=== PATIENT | male | born 1975 | race Caucasian/White ===

== ENCOUNTER 2021-01-25 00:11 | Inpatient (IN) | payer BC, SELFPAY ==
[2021-01-25] VITALS (16 sets, daily range): BP systolic 112–149; BP diastolic 57–94; PULSE 77–109; RESP 16–20; TEMP 36.3–37.3; O2SAT 93–100; BMI 44.4; BMI 97.8
--- NOTE | ~2021-01-25 | US_ITS ---
EXAMINATION: US venous doppler [facility] DATE: 01/26/2021 09:21 INDICATION: Bilateral lower limb swelling TECHNIQUE: Castle scale images without and with compression and Doppler images of the bilateral lower e xtremity veins were obtained. COMPARISON: None FINDINGS: The right common femoral vein, profunda femoral vein, femoral vein, popliteal vein, peroneal trunk, p osterior tibial veins, and greater saphenous vein are patent. The left common femoral vein, profunda femoral vein, femoral vein, popliteal vein, peroneal trunk, po sterior tibial veins, and greater saphenous vein are patent. IMPRESSION: 1. Patent bilateral lower extremity veins. No evidence of deep venous thrombosis. Reviewed, dictated and finalized at location A. IMPRESSION: 1. Patent bilateral lower extremity veins. No evidence of deep venous thrombosi s.
--- NOTE | ~2021-01-25 | CT_ITS ---
EXAMINATION: CTA chest PE protocol DATE: 01/25/2021 02:12 INDICATION: Shortness of breath TECHNIQUE: Computed tomography angiography (CTA) of the chest was performed with 100 mL Omnipaque-350 intravenous contrast timed to evaluate the pulmonary arteries. Coronal maximum intensity projection 3D-reconstructions were created by the technologist. The dose-length product (DLP) was 898.49 mGy-cm. Automated exposure control and iterative reconstruction technique were employed. COMPARISON: None. FINDINGS: The pulmonary arteries are well-opacified. No pulmonary embolism is identified. There are w idespread airspace opacities involving all lung zones. There is no pleural effusion or pneumothorax. The heart size is normal. There is mild mediastinal and bilateral hilar lymphadenopathy. There is mil d thoracic spondylosis. Cholelithiasis is noted. IMPRESSION: 1. Diffuse lung disease, consistent with atypical pneumonia, possibly COVID 19 patient's clinical his tory. 2. No pulmonary embolus. Reviewed, dictated and finalized at location A. IMPRESSION: 1. Diffuse lung disease, consistent with atypical pneumonia, possibly COVID 19 patient's clinical history. 2. No pulmonary embolus.
--- NOTE | ~2021-01-25 | XR_ITS ---
EXAMINATION: XR chest 1V portable DATE: 01/25/2021 00:42 INDICATION: Shortness of breath TECHNIQUE: frontal view of the chest was obtained. COMPARISON: None FINDINGS: Patchy airspace opacities scattered throughout both lungs consistent with pneumonia. No pleural effus ion or pneumothorax. The cardiomediastinal silhouette is normal. IMPRESSION: 1. Diffuse bilateral patchy lung disease consistent with pneumonia including COVID pneumonia. Pulmona ry edema considered less likely. Reviewed, dictated and finalized at location A. IMPRESSION: 1. Diffuse bilateral patchy lung disease consistent with pneumonia including CO VID pneumonia. Pulmonary edema considered less likely.
--- NOTE | 2021-01-25 00:33 | ECG_ITS ---
Measurements Intervals [place] Rate: 109 P: -23 MN: 124 QRS: -20 QRSD: 86 T: 58 QT: 343 QTc: 462 Interpretive Statements SINUS TACHYCARDIA LOW QRS VOLTAGE IN PRECORDIAL LEADS BASELINE ARTIFACT- I, II, III, AVR, AVF, V1-V6 ABNORMAL ECG Electronically Signed On 01-25-2021 7:10:06 CDT by Dewayne Mcdermott D.O.
--- NOTE | 2021-01-25 00:35 | ED.SOB ---
HPI - SOB/Dyspnea General Chief Complaint: Shortness of Breath/Dyspnea Stated Complaint: low O2 sats, fever Time Seen by Provider: 01/25/21 00:22 History of Present Illness HPI Narrative: 45 yo male w/ h/o htn, DM presents to the ED for SOB. He was diagnosed with COVID-19 on 12/29. He was hospitalized and placed on Remdesivir. After discharge he reports that he had not required oxygen. He has had increased SOB today. He also reports fever of 101 at home. He was found to have RA sat f 83% in triage. No CP Related Data Allergies Allergy/AdvReac Type Severity Reaction Status Date / Time latex Allergy Blister Verified 01/25/21 02:16 sulfamethoxazole Allergy Hives Verified 01/25/21 02:16 [From Bactrim] trimethoprim [From Bactrim] Allergy Hives Verified 01/25/21 02:16 Review of Systems Review of Systems: All systems reviewed & are unremarkable except as noted in HPI and below Constitutional: Constitutional: Reports fever(s) and Denies weakness Eyes: Eyes: Reports no additional eye complaints ENT: Denies dizziness Cardiovascular: Cardiovascular: Denies chest pain Respiratory: Respiratory: Reports cough and Reports dyspnea Gastrointestinal: Gastrointestinal: Reports no additional gastrointestinal complaints Genitourinary: Genitourinary: Reports no additional male genitourinary complaints Neurologic: Denies dizziness and Denies weakness [facility] Past Medical History Medical History (Updated 01/25/21 @ 03:42 by Henrique Douglas MD) COVID-19 Diabetes mellitus HTN (hypertension) Social History Social History (Updated 01/25/21 @ 03:40 by Henrique Douglas MD) Smoking status: Never smoker Exam Const: General: no acute distress and alert Nutritional Appearance: obese morbidly obese Orientation/consciousness: patient oriented x3 HENMT: Head: normal to inspection Neck: Neck: normal visual inspection Chest: Chest palpation & inspection: normal inspection of the chest Resp: Effort & Inspection: tachypneic Auscultation: crackles Cardio: Rate: tachycardic Rhythm: regular rhythm GI: GI Palp: Yes Soft to palpation and No Tenderness to palpation present (GI) Skin: General skin exam: normal color Neuro: General: patient oriented x3, moves all extremities, no focal motor deficits and CN's II-XI intact bilaterally Speech: normal speech Extrem: General: edema bilateral (right >left) Course Vital Signs Vital signs: Vital Signs Temperature 37.0 C 01/25/21 00:25 Pulse Rate 109 H 01/25/21 00:25 Respiratory Rate 17 01/25/21 00:25 Blood Pressure 124/86 01/25/21 00:25 Pulse Oximetry 95 01/25/21 00:25 Temperature 37.0 C 01/25/21 00:25 Pulse Rate 104 H 01/25/21 03:34 Respiratory Rate 20 01/25/21 03:34 Blood Pressure 139/75 01/25/21 03:34 Pulse Oximetry 100 01/25/21 03:34 MDM - SOB/Dyspnea Differential Diagnosis Differential diagnosis: Likely congestive heart failure, community acquired pneumonia, pulmonary embolism and other Medical Records Attestation: I reviewed the patient's medical records. Lab Data Attestation: I reviewed the patient's lab results. Result diagrams: 01/25/21 01:06 01/25/21 01:06 Labs: Lab Results 01/25/21 01/25/21 01/25/21 Range/Units 01:06 01:06 01:06 WBC 11.4 H (4.5-10.0) K/mm3 RBC 4.08 L (4.6-6.20) M/mm3 Hgb 11.2 L (14.0-18.0) g/dL Hct 36.3 L (42.0-52.0) % MCV 89.0 (80-100) fl MCH 27.5 (26-34) pg MCHC 30.9 L (32-36) g/dl RDW 14.5 (11.5-14.5) % Plt Count 252 (150-375) k/mm3 MPV 9.8 (7.4-10.4) fl Immature Gran % (Auto) 0.4 (0-0.5) % Neut % (Auto) 73.8 H (45.5-73.1) % Lymph % (Auto) 14.6 L (18.3-44.2) % [place] % (Auto) 7.6 (2.6-8.5) % Eos % (Auto) 3.2 (0-4.4) % Baso % (Auto) 0.4 (0.2-1.2) % Lymph # (Auto) 1.66 (0.9-3.2) K/mm3 [place] # (Auto) 0.9 H (0.1-0.6) K/mm3 Eos # (Auto) 0.4 H (0-0.3) K/mm3 Baso # (Auto)
[2021-01-25] MEDS: ALBUTEROL SULFATE NEB 2.5 MG/0.5 ML INH 5 MG INHALATION (01:04)
[2021-01-25] MEDS: IPRATROPIUM BR 0.02% INH SOLN 0.5 MG/2.5 ML VIAL INHALATION (01:04)
[2021-01-25 01:15] LABS: Basophils Percent Auto 0.4 % (0.2-1.2); Eosinophils Absolute Auto 0.4 K/mm3 (0-0.3); Eosinophils Percent Auto 3.2 % (0-4.4); Hematocrit 36.3 % (42.0-52.0); Hemoglobin 11.2 g/dL (14.0-18.0); Immature Granulocyte Absolute 0.05 K/mm3 (0.00-0.031); Immature Granulocyte Percent A 0.4 % (0-0.5); Lymphocytes Absolute Auto 1.66 K/mm3 (0.9-3.2); Lymphocytes Percent Auto 14.6 % (18.3-44.2); Mean Corpuscular HGB Conc 30.9 g/dl (32-36); Mean Corpuscular Hemoglobin 27.5 pg (26-34); Mean Platelet Volume 9.8 fl (7.4-10.4); Monocytes Absolute Auto 0.9 K/mm3 (0.1-0.6); Monocytes Percent Auto 7.6 % (2.6-8.5); Neutrophils Absolute Auto 8.4 K/mm3 (1.3-6.7); Neutrophils Percent Auto 73.8 % (45.5-73.1); Platelet Count Result 252 k/mm3 (150-375); Red Blood Count 4.08 M/mm3 (4.6-6.20); Red Cell Distribution Width 14.5 % (11.5-14.5); White Blood Count 11.4 K/mm3 (4.5-10.0)
[2021-01-25 01:16] LABS: Alveolar/Arterial O2 Gradient 150.2 mmHg; Base Excess ABG -1.1 mEq/l (+/-2.0); Device NASAL CANNULA; Fractional Inspired Oxygen 40 %; HCO3 ABG 23.1 mEq/l (22.0-26.0); Oxygen Content ABG 17.3 %vol (16.0-22.0); Oxygen Saturation ABG 97.2 % (95.0-100.0); Oxyhemoglobin 95.6 % THb (90.0-100.0); PO2 ABG 92.5 mmHg (80.0-100.0); PO2 FiO2 Ratio Arterial Blood 2.31 %; Site Drawn RIGHT BRACHIAL; Total Hemoglobin 12.8 g/dL (12.0-18.0); pH ABG 7.413 (7.350-7.450)
[2021-01-25 01:24] LABS: Lactic Acid Reflex 0.8 mmol/L (0.7-2.1)
[2021-01-25 01:25] LABS: Alanine Aminotransferase 29 U/L (4-50); Albumin Level 3.7 g/dL (3.5-5.1); Alkaline Phosphatase 65 U/L (38-126); Anion Gap 8 mmol/L (8-16); Aspartate Amino Transferase 32 U/L (17-59); Bilirubin,Total 0.4 mg/dL (0.2-1.3); Blood Urea Nitrogen 24 mg/dL (9-20); Calcium 8.6 mg/dL (8.4-10.2); Carbon Dioxide 23 mmol/L (22-30); Chloride 109 mmol/L (98-107); Estimated Glomerular Filt Rate > 60; Glucose 173 mg/dL (65-110); Sodium 140 mmol/L (137-145)
[2021-01-25 01:30] LABS: INR 0.9; Prothrombin Time 12.4 Seconds (11.1-14.7)
[2021-01-25 01:31] LABS: Partial Thromboplastin Time 30.6 SECONDS (22.3-36.8)
[2021-01-25 01:33] LABS: D Dimer 1.88 ug/mL (<0.48)
[2021-01-25 01:37] LABS: NT Pro B Type Natriuretic Pept 204 pg/mL (5-100); Troponin I 0.016 ng/mL (0.000-0.034)
--- NOTE | 2021-01-25 02:04 | PM.IMHP ---
H&P: HPI History of Present Illness Date/Time: 01/25/21 02:04 Chief Complaint: low oxygen saturations Narrative: 45-year-old male with past medical history of obesity, chronic kidney disease, poorly-controlled diabetes, hypertension, hyperlipidemia, and recent COVID-19 pneumonia who presented to the ER via private vehicle with hypoxia and fever. The patient began having symptoms of shortness of breath the last week in November. he had also had some lower extremity swelling at that time and had an outpatient CT a of the chest which was negative for pulmonary embolism. He received an echocardiogram and EKG at that time which were unremarkable per his report On December 28 he began having fevers and nonproductive cough. He went for outpatient infusion with monoclonal antibodies. While he was getting his antibiotic and fusion the checked his oxygen saturations which were 79%. She was subsequently admitted to [facility] in [facility] (where he lives) for 5 days. He reported that his symptoms improved while hospitalized after sitting Remdesivir and steroid therapy. He was discharged home on room air. He is having intermittent episodes of fatigue and difficulty taking a deep breath for about a week after that. After which time his symptoms had resolved. Then on the morning of the he drove down from [place] to visit his girlfriend locally. After he arrived at her home he was having difficulty catching his breath. The patient's girlfriend has pulmonary hypertension so she checked his pulse ox and it was in the low 70s on room air. She placed the patient on her oxygen concentrator at 4 L and his oxygen saturations only improved to the mid 80s. She subsequently increased his oxygen up to 8 L nasal cannula to get his oxygen saturations in the mid 90s. He also spiked a fever shortly thereafter of just below 101? After he spiked a fever his girlfriend was eventually able to convince him to come to the ER for evaluation.. He reports that he had not had a fever since he was discharged from the hospital. he also developed the cough that was nonproductive. He reports that he feels as if he has some tickle in his throat but is unable to get any mucus up. Denies any rhinorrhea, loss of sense of taste or smell, nausea or vomiting, or chest pain. He does report that 4 days ago he started having some posterior lower rib pain that he thought was due to straining or under unusual movement. He reports that after he received nebulizer treatment in the ER his symptoms have since improved. He reports having some chronic lower extremity swelling. He was states that his Norvasc/benazepril was changed to just plain Norvasc due to his lower extremity swelling. He also started on Coreg recently And was switched to olmesartan. He reports that he is on Lasix 20 mg a day and for CK a which helps him with diuresis. Subsequently his lower extremity swelling has improved. He denies any history of CHF. He does have obstructive sleep apnea and is compliant with CPAP. In the ER he was noted to have a mildly elevated D-dimer and underwent CTA which was negative for pulmonary embolism. Pattern was consistent with recent infectious process such as Covid or other underlying pneumonia. He does have chronic uncontrolled diabetes. He reports that his hemoglobin A1c recently decline from around 12 down to around 9. He is on insulin pump as well as oral hypoglycemics. He reports that his glucoses have been ranging between 80 in the low 200s. 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 He denies any changes in his urine output, cloudy urine or hematuria. He denies any calf pain. Review of Systems Review of Systems: 12 systems were reviewed with pertinent positives and negatives per HPI. Except as documented in the HPI, all other systems were reviewed and are negative. [facility] Past Medical History Medical History (Updated 01/25/21 @ 05:
[2021-01-25] MEDS: FUROSEMIDE INJ 40 MG/4 ML VIAL IV PUSH (02:20)
--- NOTE | 2021-01-25 05:01 | ADMGEN ---
This patient, Gil Jaramillo, was admitted to [facility] S[facility] Room 309-01. Patient/family oriented to hospital policies and general routines including ID bracelet, bed and alarms, visiting hours, pain management, procedures, bathroom and other care routines, personal items, smoking policy, room service/diet, and visiting hours. Information on how to activate the Rapid Response Team has been discussed. Patient/Family are encouraged to report perceived risks to care and to ask questions if they do not understand what they are told or what they should do.
[2021-01-25 06:09] LABS: Hematocrit 38.7 % (42.0-52.0); Mean Corpuscular Hemoglobin 27.3 pg (26-34); Mean Platelet Volume 9.9 fl (7.4-10.4); Platelet Count Result 257 k/mm3 (150-375); Red Cell Distribution Width 14.5 % (11.5-14.5); White Blood Count 9.6 K/mm3 (4.5-10.0)
[2021-01-25 06:24] LABS: Anion Gap 13 mmol/L (8-16); Blood Urea Nitrogen 24 mg/dL (9-20); Calcium 8.7 mg/dL (8.4-10.2); Carbon Dioxide 20 mmol/L (22-30); Chloride 108 mmol/L (98-107); Estimated CRCL calculation 144 ml/min; Estimated Glomerular Filt Rate > 60; Glucose 149 mg/dL (65-110); Potassium 4.2 mmol/L (3.4-5.0); Sodium 141 mmol/L (137-145)
--- NOTE | 2021-01-25 06:53 | PHAR ---
PT'S HOME MED ALPHA LIPOIC ACID 600 MG CAPSULES UNABLE TO BE VERIFIED BY PHARMACY DUE TO LACK OF IDENTIFIABLE MARKINGS. THE LACK OF IDENTIFIABLE MARKINGS IS COMMON FOR DIETARY SUPPLEMENTS.
[2021-01-25] MEDS: ALBUTEROL SULFATE (*SP) AEROSOL 1 PUFF 4 PUFF INHALATION ×4 (09:03→20:04)
[2021-01-25] MEDS: ROSUVASTATIN 10 MG TABLET 20 MG PO (10:25)
[2021-01-25] MEDS: carvediloL 6.25 MG TABLET PO ×2 (10:25→17:39)
[2021-01-25] MEDS: metFORMIN HCL 500 MG TABLET 1000 MG PO ×2 (10:26→17:39)
[2021-01-25] MEDS: SODIUM BICARBONATE TAB 650 MG TABLET PO ×2 (10:26→17:39)
[2021-01-25] MEDS: buPROPion HCL XL (24 HR) 150 MG TABCR 300 MG PO (10:26)
[2021-01-25] MEDS: allopurinoL 100 MG TABLET 200 MG PO (10:26)
[2021-01-25] MEDS: amLODIPine BESYLATE 5 MG TABLET 10 MG PO (10:26)
[2021-01-25] MEDS: ASPIRIN 81 MG CHEWABLE TABLET PO (10:26)
[2021-01-25] MEDS: FUROSEMIDE 20 MG TABLET PO (10:26)
[2021-01-25] MEDS: FAMOTIDINE 20 MG TABLET PO (10:27)
[2021-01-25] MEDS: PANTOPRAZOLE 40 MG TABLET PO (10:27)
[2021-01-25] MEDS: ENOXAPARIN 40 MG/0.4 ML SYRINGE SUB-Q (10:27)
--- NOTE | 2021-01-25 15:15 | PM.IMPN ---
Progress Note: A&P Assessment and Plan (1) Acute respiratory failure with hypoxia: Code(s): J96.01 - Acute respiratory failure with hypoxia Status: Acute Assessment and Plan: Likely due to secondary bacterial pneumonia Given new bout of fever and recurrence of hypoxia following recent COVID19 pneumonia. Patient's girlfriend feels the patient's symptoms improved after nebulizer treatments. Will continue patient on albuterol inhalers 4 puffs q.i.d.. Will continue empiric antibiotic therapy with Rocephin and azithromycin. Will wean oxygen as tolerated to maintain O2 sats greater than 90%. WBC 9.6 trend labs labs in the am Legionella pending (2) Pneumonia due to COVID-19 virus: Code(s): U07.1 - COVID-19; J12.82 - Pneumonia due to coronavirus disease 2018 Status: Acute Assessment and Plan: the patient had recent diagnosis of COVID-19 pneumonia. However he had not had a fever in a couple of weeks after his initial diagnosis. I am suspicious the patient may have a secondary bacterial pneumonia. He is by on the window for isolation for COVID-19. Continue empiric antibiotic therapy with Rocephin and azithromycin. Will check urine Legionella and pneumococcal antigens. (3) Obstructive sleep apnea on CPAP: Code(s): G47.33 - Obstructive sleep apnea (adult) (pediatric); Z99.89 - Dependence on other enabling machines and devices Status: Acute Assessment and Plan: Will continue home CPAP with a pressure of 15 with the addition of bleed in oxygen. Subjective Date/time seen: 01/25/21 14:35 Interval history: patient is a 45-year-old male with past medical history of obesity, chronic kidney disease, diabetes, hypertension, hyperlipidemia and recent COVID-19 pneumonia who presented to the ED for hypoxia. Once again they both reiterated the patient was 70% on room air whenever getting down here from [place]. Patient was then put on 4 L from the girlfriend's nasal cannula in a concentrator which only brought him up to 80%. patient was then put on 8 L nasal cannula which did not help him either. Patient has no complaints of shortness of breath at this time chest pain, sweats, chills. Patient did say that he had a fever last night of 101. Patient is currently on 3 L nasal cannula will trend on 2 L did talk to patient about wearing his campus monitor so that we can assess his heart rate and rhythm as well. Patient stated that it did not help his comfort level, and comfort level also helps him heal. I explained him that my med be very long but I would definitely get off as quickly possibly could. as explained the patient would like to do a venous Doppler on his legs due to the increase in swelling and the elevated D-dimer. Review of Systems Review of Systems: All systems reviewed & are unremarkable except as noted in HPI and below Exam Const: General: cooperative, healthy appearing, comfortable, no acute distress, well developed, alert, awake, Physically active and anxious Nutritional Appearance: well nourished, obese and overweight Orientation/consciousness: oriented to person, oriented to place, oriented to time and patient oriented x3 Limitations: no limitations HENMT: Head: normal to inspection Ears: hearing grossly normal bilaterally General nose exam: Normal external nose present Mouth: Yes Normal oral and palatal mucosa present, Yes lip normal and Yes tongue normal Teeth and gingiva: abnormal tooth and associated gingiva and poor dentition Eyes: General: appearance normal, both eyes and all related structures Neck: Neck: normal visual inspection, full ROM, trachea midline and supple Chest: Chest palpation & inspection: normal inspection of the chest Resp: Effort & Inspection: normal respiratory effort and able to speak in complete sentences Auscultation: clear to auscultation bilaterally Cardio: Jugular venous distension: no JVD Rate: regula
--- NOTE | 2021-01-25 16:28 | PHAR ---
Home medication seen in pharmacy and returned to 3medsurg unit. Wade CoQ10 Ubiquinol 100mg supplement. Original container, capsules have no identifying markers
--- NOTE | 2021-01-25 21:39 | PHAR ---
Dapagliflozin [Farxiga] 10 mg tablet- VERIFIED IN PHARMACY THIS MORNING ~6:30 AND SENT BACK TO THE FLOOR.
[2021-01-26] VITALS (9 sets, daily range): BP systolic 127; BP diastolic 68; PULSE 99–128; RESP 20; TEMP 36.3; O2SAT 89–94
[2021-01-26 07:44] LABS: Glucose Point of Care 95 mg/dl (65-105)
[2021-01-26] MEDS: ALBUTEROL SULFATE (*SP) AEROSOL 1 PUFF 4 PUFF INHALATION ×2 (08:10→12:09)
[2021-01-26 08:25] LABS: Hematocrit 37.8 % (42.0-52.0); Hemoglobin 11.4 g/dL (14.0-18.0); Mean Corpuscular HGB Conc 30.2 g/dl (32-36); Mean Corpuscular Hemoglobin 27.4 pg (26-34); Mean Corpuscular Volume 90.9 fl (80-100); Mean Platelet Volume 9.8 fl (7.4-10.4); Platelet Count Result 248 k/mm3 (150-375); Red Blood Count 4.16 M/mm3 (4.6-6.20); Red Cell Distribution Width 14.8 % (11.5-14.5); White Blood Count 7.7 K/mm3 (4.5-10.0)
[2021-01-26 08:41] LABS: Alanine Aminotransferase 24 U/L (4-50); Albumin Level 3.6 g/dL (3.5-5.1); Alkaline Phosphatase 66 U/L (38-126); Anion Gap 11 mmol/L (8-16); Aspartate Amino Transferase 26 U/L (17-59); Bilirubin,Total 0.5 mg/dL (0.2-1.3); Blood Urea Nitrogen 22 mg/dL (9-20); Calcium 8.6 mg/dL (8.4-10.2); Carbon Dioxide 22 mmol/L (22-30); Chloride 107 mmol/L (98-107); Estimated CRCL calculation 93 ml/min; Estimated Glomerular Filt Rate > 60; Glucose 95 mg/dL (65-110); Potassium 4.1 mmol/L (3.4-5.0); Sodium 140 mmol/L (137-145)
[2021-01-26] MEDS: amLODIPine BESYLATE 5 MG TABLET 10 MG PO (09:33)
[2021-01-26] MEDS: FAMOTIDINE 20 MG TABLET PO (09:33)
[2021-01-26] MEDS: carvediloL 6.25 MG TABLET PO (09:33)
[2021-01-26] MEDS: PANTOPRAZOLE 40 MG TABLET PO (09:33)
[2021-01-26] MEDS: ROSUVASTATIN 10 MG TABLET 20 MG PO (09:33)
[2021-01-26] MEDS: buPROPion HCL XL (24 HR) 150 MG TABCR 300 MG PO (09:33)
[2021-01-26] MEDS: allopurinoL 100 MG TABLET 200 MG PO (09:33)
[2021-01-26] MEDS: FUROSEMIDE 20 MG TABLET PO (09:33)
[2021-01-26] MEDS: metFORMIN HCL 500 MG TABLET 1000 MG PO (09:33)
[2021-01-26] MEDS: ENOXAPARIN 40 MG/0.4 ML SYRINGE SUB-Q (09:35)
[2021-01-26] MEDS: ASPIRIN 81 MG CHEWABLE TABLET PO (09:35)
[2021-01-26] MEDS: SODIUM BICARBONATE TAB 650 MG TABLET PO (09:35)
--- NOTE | 2021-01-26 11:16 | PM.DS ---
DS: Admitting Diagnosis Admitting Diagnosis Pneumonia DS: Discharge Diagnosis Discharge Diagnosis (1) Acute respiratory failure with hypoxia: Code(s): J96.01 - Acute respiratory failure with hypoxia Status: Acute Assessment and Plan: Likely due to secondary bacterial pneumonia Given new bout of fever and recurrence of hypoxia following recent COVID19 pneumonia. Patient's girlfriend feels the patient's symptoms improved after nebulizer treatments. Will continue patient on albuterol inhalers 4 puffs q.i.d.. Will continue empiric antibiotic therapy with Rocephin and azithromycin. Will wean oxygen as tolerated to maintain O2 sats greater than 90%. WBC 7.7 trend labs labs in the am Legionella pending (2) Pneumonia due to COVID-19 virus: Code(s): U07.1 - COVID-19; J12.82 - Pneumonia due to coronavirus disease 2019 Status: Acute Assessment and Plan: the patient had recent diagnosis of COVID-19 pneumonia. However he had not had a fever in a couple of weeks after his initial diagnosis. I am suspicious the patient may have a secondary bacterial pneumonia. He is by on the window for isolation for COVID-19. Continue empiric antibiotic therapy with Rocephin and azithromycin. Will check urine Legionella and pneumococcal antigens. (3) Obstructive sleep apnea on CPAP: Code(s): G47.33 - Obstructive sleep apnea (adult) (pediatric); Z99.89 - Dependence on other enabling machines and devices Status: Acute Assessment and Plan: Will continue home CPAP with a pressure of 15 with the addition of bleed in oxygen. DS: Summary Hospital Course Hospital Course: DOS 01/26/21 @ 11:40am Patient is a 45-year-old male with past medical history of obesity, chronic kidney disease, diabetes, hypertension, hyperlipidemia and recent COVID-19 pneumonia who presented to the ED for hypoxia. upon arrival to the ED he was satting 83% on room air. It was reported that while he was at home his girlfriend had checked his SpO2 which was 70% she put him on 4 L nasal cannula per her concentrator. However it was also stated that it only brought his sat up to the 80s. Patient had a white blood cell count of 11.4 upon arrival in today the 7.7 H&H has remained stable throughout the whole visit. Patient also has a D-dimer of 1.88 CTA showed diffuse lung disease consistent with atypical pneumonia possibly COVID-19 and no pulmonary embolus. Chest x-ray showed diffuse bilateral patchy lung disease consistent with pneumonia including COVID and pneumonia. Patient was also checked to make sure the patient did have DVTs due to lower limb extremity edema. Venous Dopplers did come back negative. Patient has been on room air since overnight and is satting well into the mid 90s. Patient is ready to go home and is currently refusing to wear his monitor. Will discharge patient on oral antibiotics after a 6 minutes walk test to make sure patient does not need home O2. Patient denies chest pain, shortness of breath, nausea, vomiting, diarrhea, constipation, sweats, fevers, chills. Status at Discharge Functional status at discharge: independent ambulation Overall status at discharge: patient is back to baseline Time Spent with Patient Time attestation: Total time spent providing and/or coordinating discharge services: 43 minutes Time spent: Greater than 30 minutes Specific discharge activities: chart review, lab review, documentation, physical exam, diagnostic testing, care planning. Exam Const: General: cooperative, healthy appearing, comfortable, no acute distress, well developed, alert, awake, Physically active and anxious Nutritional Appearance: well nourished, obese and overweight Orientation/consciousness: oriented to person, oriented to place, oriented to time and patient oriented x3 Limitations: no limitations HENMT: Head: normal to inspection Ears: hearing grossly normal bilaterally Gene
[2021-01-26 12:06] LABS: Glucose Point of Care 155 mg/dl (65-105)
--- NOTE | 2021-01-26 13:39 | HOMEO2EVAL ---
Evaluation was performed at [facility] Home Oxygen Evaluation RC: Home Oxygen (O2) Evaluation Start: 01/26/21 12:55 Freq: ONCE Status: Active Protocol: RPE Activity Type Activity Date Activity User E-Sign Co-Sign Detail Recorded Client Recorded Date Recorded By Document 01/26/21 12:50 DJO [email or web address] 01/26/21 13:38 DJO Document 01/26/21 12:55 DJO [email or web address] 01/26/21 13:38 DJO Document 01/26/21 13:10 DJO [email or web address] 01/26/21 13:38 DJO 01/26/21 01/26/21 01/26/21 12:50 12:55 13:10 Home O2 Evaluation Test Phase Resting Exercise Resting Oxygen Delivery Room Air Room Air Room Air Pulse Oximetry (90-100 %) 93 89 L 93 Pulse Rate (60-100 beats/min) 108 H 128 H 112 H Activity Tolerance Good Ambulation Distance (feet) 1,000 Treatment Charges O2 Evaluation - Inpatient
--- NOTE | 2021-01-26 13:39 | PCRCNOTE ---
HOME O2 EVAL COMPLETE, NO REQUIREMENTS
== END 2021-01-26 14:35 | disposition home or self-care (01) | DRG 193 ==
LOC: ANHED 03:42 → ANH3MEDSUR 01-26 11:31
PROVIDERS: Nurse Practitioner; Admitting Provider Internal Medicine; Emergency Provider Emergency Medicine; Visit Provider Student in an Organized Health Care Education/Training Program
DX: J15.9 Unspecified bacterial pneumonia (principal); J96.01 Acute respiratory failure with hypoxia; Z68.41 Body mass index [BMI] 40.0-44.9, adult; J18.9 Pneumonia, unspecified organism; B94.8 Sequelae of other specified infectious and parasitic diseases; G47.33 Obstructive sleep apnea (adult) (pediatric); E66.9 Obesity, unspecified; I12.9 Hypertensive chronic kidney disease with stage 1 through stage 4 chronic kidney disease, or unspecified chronic kidney disease; E11.22 Type 2 diabetes mellitus with diabetic chronic kidney disease; N18.9 Chronic kidney disease, unspecified; E11.42 Type 2 diabetes mellitus with diabetic polyneuropathy; E78.5 Hyperlipidemia, unspecified; F32.9 Major depressive disorder, single episode, unspecified
CPT/HCPCS: 36415; 36600; 71045; 71275; 80048; 80053; 82805; 82948; 83605; 83880; 84484; 85025; 85027; 85380; 85610; 85730; 87040; 93005; 93970; 94618; 94640; 96365; 96375; 99285; A9270; J0456; J0696; J1650; J1940; Q9967